=== PATIENT | female | born 1990 | race American Indian/Alaskan Native ===

== ENCOUNTER 2019-01-26 08:48 | Inpatient (IN) | payer MEDICAID ==
[2019-01-26] MEDS ORDERED: REGLAN IV NR (10:00)
[2019-01-26] MEDS ORDERED: PEPCID IV NR (10:00)
[2019-01-26] MEDS ORDERED: ANCEF/STERILE WATER 2 GM/20 ML 2 GM/20 ML SYRINGE IV NR (10:00)
[2019-01-26] MEDS ORDERED: LACTATED RINGERS 1,000 ML IV SCH (10:00)
[2019-01-26] MEDS ORDERED: PITOCin/NS 20 UNIT/1000ML DRIP 20 UNITS/1,000 ML BAG IV SCH ×2 (10:00→15:00)
[2019-01-26] MEDS ORDERED: BICITRA PO NR (10:00)
[2019-01-26 10:11] LABS: Basophils % (Auto) 0.3 % (0.0-1.8); Eosinophils % (Auto) 0.4 % (0.0-4.3); Hemoglobin 10.8 gm/dl (10.1-14.3); Lymphocytes # (Auto) 2.5 K/mm3 (1.2-5.4); Lymphocytes % (Auto) 24.7 % (13.4-35.0); Mean Corpuscular HGB Conc 33 % (30-34); Mean Corpuscular Volume 80 fl (79-97); Monocytes # (Auto) 0.5 K/mm3 (0.0-0.8); Monocytes % (Auto) 5.1 % (0.0-7.3); Platelet Count 366 K/mm3 (140-440); Red Blood Count 4.11 M/mm3 (3.65-5.03); Red Cell Distribution Width 19.6 % (13.2-15.2)
--- NOTE | 2019-01-26 10:21 | Anesthesia Day of Surgery ---
Anesthesia Day of Surgery - Day of Surgery Patient Examined: Yes Patient H&P Reviewed: Yes Patient is NPO: Yes Beta Blockers: No Cardiac Clearance: No Pulmonary Clearance: No Marvin's Test: N/A
--- NOTE | 2019-01-26 10:21 | Anesthesia Consultation ---
Anesthesia Consult and Med Hx Date of service: 01/26/19 - Airway Anesthetic Teeth Evaluation: Good ROM Head & Neck: Adequate Mental/Hyoid Distance: Adequate Mallampati Class: Class III Intubation Access Assessment: Probably Good - Pulmonary Exam CTA: Yes - Cardiac Exam Cardiac Exam: RRR - Pre-Operative Health Status ASA Pre-Surgery Classification: ASA3 Proposed Anesthetic Plan: Spinal - Pulmonary Hx Smoking: No Hx Asthma: No Hx Respiratory Symptoms: No SOB: No COPD: No Home Oxygen Therapy: No Hx Pneumonia: No Hx Sleep Apnea: No - Cardiovascular System Hx Hypertension: No Hx Coronary Artery Disease: No Hx Heart Attack/AMI: No Hx Angina: No Hx Percutaneous Transluminal Coronary Angioplasty (PTCA): No Hx Cardia Arrhythmia: No Hx Pacemaker: No Hx Internal Defibrillator: No Hx Valvular Heart Disease: No Hx Heart Murmur: No Hx Peripheral Vascular Disease: No - Central Nervous System Hx Neuromuscular Disorder: No Hx Seizures: No CVA: No Hx Back Pain: Yes Hx Psychiatric Problems: No - Gastrointestinal Hx Ulcer: No Hx Gastroesophageal Reflux Disease: Yes - Endocrine Hx Renal Disease: No Hx End Stage Renal Disease: No Hx Cirrhosis: No Hx Liver Disease: No Hx Insulin Dependent Diabetes: No Hx Non-Insulin Dependent Diabetes: No Hx Thyroid Disease: No Hx Hypothyroidism: No Hx Hyperthyroidism: No - Hematic Hx Anemia: No Hx Sickle Cell Disease: No - Other Systems Hx Alcohol Use: No Hx Substance Use: No Hx Cancer: No Hx Obesity: Yes (BMI 48.4)
--- NOTE | 2019-01-26 10:22 | Post Anesthesia Evaluation ---
- Post Anesthesia Evaluation Patient Participated: Yes Airway Patent: Yes Stable Respiratory Function: Yes Nausea/Vomiting: No Temp > 96.8F: Yes Pain Manageable: Yes Adequeate Hydration: Yes Anesthesia Complications: No Block Receding Appropriately: Yes Patient on Ventilator: No
[2019-01-26] MEDS ORDERED: NARCAN 0.4 MG/1 ML IV PRN ×2 (10:30→14:42)
[2019-01-26] MEDS ORDERED: SUBLIMAZE ONE ×2 (10:30→13:45)
[2019-01-26] MEDS ORDERED: ZOFRAN IV PRN ×2 (10:30→14:42)
[2019-01-26] MEDS ORDERED: PHENERGAN PO PRN (10:30)
[2019-01-26] MEDS ORDERED: PHENERGAN PR PRN ×2 (10:30→14:42)
[2019-01-26] MEDS ORDERED: SODIUM CHLORIDE FLUSH SYRINGE 10 ML IV PRN (11:00)
[2019-01-26] MEDS ORDERED: LACTATED RINGERS 1,000 ML ONE ×2 (11:48→14:18)
--- NOTE | 2019-01-26 11:52 | History and Physical Report ---
History of Present Illness Date of examination: 01/26/19 Date of admission: 01/26/19 08:48 Chief complaint: SIUP at 39 weeks at 39 weeks and 4 days gestation not in labor. Previous C/section x 2. Unwanted fertility. History of present illness: Patient is a 28 year old , LMP 04/24/18, EDC 01/29/19 at 39 weeks and 4 days gestation who was admitted for elective repeat C/section and tubal ligation. She denies any contraction, fluid leakage or bleeding. She reports good movement. tracing is CAT1. Past History Past Medical History: other (obesity, anemia.) Past Surgical History: section ( ) [employer] AND [employer]ER History: herpes Family/Genetic History: none Social history: no significant social history - Obstetrical History Expected Date of Delivery: 01/29/19 Actual Gestation: 39 Week(s) 4 Day(s) : 3 Para: 2 Induced : 2 Medications and Allergies Allergies Allergy/AdvReac Type Severity Reaction Status Date / Time No Known Allergies Allergy Verified 01/26/19 09:30 Home Medications Medication Instructions Recorded Confirmed Last Taken Type Ibuprofen [Motrin 800 MG tab] 800 mg PO Q6H PRN 09/24/13 09/24/13 09/23/13 History Sulfamethoxazole/Trimethoprim 1 each PO BID #20 tablet 09/24/13 Unknown Rx [Bactrim Ds] Active Meds: Active Medications Citric Acid/Sodium Citrate (Bicitra) 30 ml PO ONCE NR Stop: 01/26/19 18:00 Last Admin: 01/26/19 11:08 Dose: 30 ml Documented by: Famotidine (Pepcid) 20 mg IV ONCE NR Stop: 01/26/19 18:00 Last Admin: 01/26/19 11:08 Dose: 20 mg Documented by: Cefazolin Sodium (Ancef/Sterile Water 2 Gm/20 Ml) 2 gm in 20 mls @ 80 mls/hr IV PREOP NR; Protocol Stop: 01/26/19 19:00 Oxytocin/Sodium Chloride (Pitocin/Ns 20 Unit/1000ml Drip) 20 units in 1,000 mls @ 0 mls/hr IV TITR CHARLY Lactated Ringer's (Lactated Ringers) 1,000 mls @ 2,250 mls/hr IV PREOP CHARLY Stop: 01/27/19 10:27 Metoclopramide HCl (Reglan) 10 mg IV ONCE NR Stop: 01/26/19 18:00 Last Admin: 01/26/19 11:08 Dose: 10 mg Documented by: Naloxone HCl (Narcan 0.4 Mg/1 Ml) 0.2 mg IV Q2MIN PRN PRN Reason: Res Rate </= 8 or 02 SAT < 92% Ondansetron HCl (Zofran) 4 mg IV Q8H PRN PRN Reason: Nausea And Vomiting Promethazine HCl (Phenergan) 25 mg PO Q6H PRN PRN Reason: Nausea And Vomiting Promethazine HCl (Phenergan) 25 mg GA Q6H PRN PRN Reason: Nausea And Vomiting Sodium Chloride (Sodium Chloride Flush Syringe 10 Ml) 10 ml IV PRN PRN PRN Reason: flush - Vital Signs Vital signs: Vital Signs Temp Resp 98.1 F 18 01/26/19 09:18 01/26/19 09:18 Temp Pulse Resp BP Pulse Ox 98.1 F 99 H 18 135/75 01/26/19 09:18 01/26/19 09:54 01/26/19 09:18 01/26/19 09:54 - Physical Exam Cardiovascular: Normal S1, Normal S2 Lungs: Positive: Clear to auscultation Vulva: both: normal Adnexa: both: normal Deep Tendon Reflex Grade: Normal +2 - Obstetrical FHR: category 1 Uterine Contraction Monitor Mode: External Cervical Dilatation: 0 Cervical Effacement Percentage: 0 station: -3 Uterine Contraction Pattern: Absent Results Result Diagrams: 01/26/19 09:35 Abnormal lab results 01/26/19 Range/Units 09:35 MCH 26 L (28-32) pg RDW 19.6 H (13.2-15.2) % All other labs normal. Assessment and Plan - Patient Problems (1) 39 weeks gestation of Current Visit: Yes Status: Acute (2) Previous section Current Visit: Yes Status: Acute Plan to address problem: Admit to labor floor. Routine preop labs. IV hydration. Keep NPO. monitoring. Patient was counselled for repeat C/section and BTL. Risks, benefits, and alternatives of the procedure were discussed in detail with the patient which included but not limited to the risk of infection, hemorrhage requiring blood transfusion, injury to the bowel or bladder and blood vessels, failure of the tubal ligation to prevent which can result in unwanted pregnancies in the future. The patient expressed understanding, her questions were answered, and she gave informed consent. Anesthesia notified. (3) Unwanted fertility Current Visit: Yes Status: Acute (4) Anemia Current Visit: Yes Status: Acute (5) Obesity Current Visit: Yes Status: Acute
[2019-01-26] MEDS ORDERED: TORADOL ONE (12:19)
[2019-01-26] MEDS ORDERED: WATER FOR IRRIG STERILE IR ONE (12:59)
[2019-01-26] MEDS ORDERED: NACL 0.9% IR ONE (12:59)
[2019-01-26] MEDS ORDERED: XYLOCAINE MPF 2% ONE (13:48)
[2019-01-26] MEDS ORDERED: MORPHINE IV PRN (14:42)
[2019-01-26] MEDS ORDERED: TUCKS PAD TP PRN (14:42)
[2019-01-26] MEDS ORDERED: LANSINOH TP PRN (14:42)
[2019-01-26] MEDS ORDERED: TYLENOL PO PRN (14:42)
[2019-01-26] MEDS ORDERED: SENOKOT PO PRN (14:42)
[2019-01-26] MEDS ORDERED: MILK OF MAGNESIA PO PRN (14:42)
[2019-01-26] MEDS ORDERED: TORADOL IV PRN (14:42)
--- NOTE | 2019-01-26 14:45 | Operative Report ---
Operative Report Operative Report: Preoperative diagnosis:
[2019-01-26] MEDS ORDERED: SODIUM CHLORIDE FLUSH SYRINGE 10 ML IV SCH (15:00)
--- NOTE | 2019-01-26 15:28 | Operative Report ---
Operative Report Operative Report: Preoperative diagnosis 1. SIUP at 39 weeks and 4 days gestation not in labor. 2. Previous C/section x 2. 3. Unwanted fertility. 4. Morbid Obesity. Postoperative diagnosis: 1. SIUP at 39 weeks and 4 days gestation not in labor. 2. Previous C/section x 2. 3. Unwanted fertility. 4. Morbid Obesity. 5. Dense adhesion of the fascia to the anterior uterine segment. Procedure: 1. Repeat low-transverse section. 2. Bilateral tubal ligation via Pemoroy method. 3. Lysis of dense adhesions of the fascia from the anterior uterine segment. Surgeon: Dr. Wallace Activated Sludge Attendant: none Anesthesia: epidural. IVF: RL 1.9 liters EBL: 800 cc Urine: 300 cc clear Complications: none. Intraoperative findings: 1. Dense adhesions of the fascia to the anterior uterine segment. 2. A female found in an SANAZ position, delivered at 1 PM, Apgars 5 at 1 minute and 8 at 5 minutes, weight 8 lbs. 9 oz. 3. Normal fallopian tubes and ovaries bilaterally. Procedure details: Risks, benefits, and alternatives of the procedure were discussed in detail with the patient which included but not limited to the risk of infection, hemorrhage requiring blood transfusion, injury to the bowel or bladder and blood vessels, the risks of the tubal ligation to fail to prevent which can result in unwanted pregnancies in the future. The patient expressed understanding, her questions were answered, and she gave informed consent. The patient was taken to the operating room with an IV fluid infusing Ringers lactate. In the operating room, she was placed in a sitting position and given spinal anesthesia. She was then placed in a dorsal supine position with a leftward tilt. Navarro catheter in Venodyne boots were placed. The abdomen was washed and she was prepared and draped in usual sterile fashion. After confirming adequate anesthesia, the Pfannenstiel skin incision was made in the lower abdomen about 2 cm above the pubic symphysis using the scalpel. This incision was carried down to the underlying fascia using the Bovie. The fascia was opened bilaterally in a curvilinear fashion using the Bovie. 2 straight Kocker clamps were used to grasp the upper edge of the fascia from which the underlying rectus abdominis muscles was dissected off using the Bovie. The fascia was also found to be densely adherent to the uterus. Most of the muscle that was attached to the fascia was the uterine muscle. A similar procedure was done with the lower edge of the fascia to dissect the underlying uterine muscle. A quick survey of the anatomy revealed a gravid uterus, normal fallopian tubes and ovaries bilaterally. A bladder flap was created. Rex'O retractor was placed in the incision for proper visualization. A low transverse incision was made in the lower uterine segment. There was copious amount of clear amniotic fluids. The was found in an SANAZ position, the head was delivered atraumatically followed by the delivery of the shoulders and the rest of the body at 1 PM. The cord was clamped 2 and cut and the was handed off to the waiting web interface developer. The infant was a female, Apgars were 5 at 1 minute and 8 at 5 minutes, weight was 8 pounds and 9 ounces. Cord blood was collected. The placenta was delivered manually and it was complete with a three-vessel cord. The uterine cavity was cleaned of clots and debris using dry lap sponges. The uterus was repaired in a running locked fashion using 0 Vicryl sutures. A second layer of imbrication was placed. The gutters were cleaned of clots and debris using dry lap sponges. After confirming adequate hemostasis, the instruments were removed from the abdominal cavity. The rectus muscle was reapproximated in an interrupted fashion using 0 Vicryl sutures. The fascia was closed in a running fashion using 0 Vicryl sutures. The subcutaneous adipose tissue was closed with 2.0 chromic sutures. The skin was closed in a roldan bcutaneous fashion with 4 vicryl on a Sudhakar needle. Sterile dressing was placed. The counts of laps, needles, sponges, and instruments were correct 2. The patient tolerated the procedure well, she was taken to the recovery room in a stable condition.
[2019-01-26] MEDS ORDERED: ANUCORT-HC PR PRN (16:00)
[2019-01-26] MEDS: TORADOL IV PRN (18:43)
[2019-01-26] MEDS: MYLICON PO PRN (22:28)
[2019-01-26] MEDS: MORPHINE IV PRN (22:29)
[2019-01-27] MEDS: TORADOL IV PRN (02:37)
[2019-01-27 03:06] LABS: Hematocrit 25.8 % (30.3-42.9); Hemoglobin 8.2 gm/dl (10.1-14.3)
[2019-01-27] MEDS: MORPHINE IV PRN (05:35)
[2019-01-27] MEDS ORDERED: BOOSTRIX IM ONE (06:00)
[2019-01-27] MEDS: FEOSOL PO SCH (10:36)
[2019-01-27] MEDS: PRENATAL VITAMIN PO SCH (10:36)
--- NOTE | 2019-01-27 11:24 | Progress Note ---
Assessment and Plan A: POD#1 s/p Repeat c/s with BTL Morbid obesity Asymptomatic Anemia Stable P: Routine PO/PP orders Encouraged ambulation in room Anticipate discharge home in 24-48 hours Subjective - Subjective Date of service: 01/27/19 Principal diagnosis: POD#1 s/p Repeat c/s with BTL Patient reports: appetite normal, voiding normally, pain well controlled, flatus, ambulating normally, no bowel movement [place]: doing well Objective - Vital Signs Latest vital signs: Vital Signs Temp Pulse Resp BP BP Pulse Ox 01/27/19 08:10 98.2 F 114 H 20 121/70 01/27/19 05:35 18 01/27/19 04:18 98.2 F 124 H 20 133/76 97 01/27/19 02:37 18 01/27/19 00:16 98.2 F 116 H 20 146/91 96 01/26/19 22:29 19 01/26/19 20:21 98.3 F 111 H 20 147/91 98 01/26/19 17:00 97.5 F L 86 18 126/80 97 01/26/19 16:00 97.8 F 76 21 102/63 95 01/26/19 15:45 80 18 101/51 95 01/26/19 15:30 88 21 112/57 95 01/26/19 15:15 87 22 98/53 95 01/26/19 15:05 73 21 106/50 95 01/26/19 15:00 82 18 108/60 95 01/26/19 14:54 97.7 F 80 19 101/61 95 Intake and Output 01/26/19 01/27/19 01/27/19 23:59 07:59 15:59 Intake Total 240 240 360 Output Total 400 1200 600 Balance -160 -960 -240 Intake: Oral 240 240 360 Output: Urine 400 1200 600 Indwelling Catheter 1200 Uretheral (Navarro) 200 Void 600 Other: Total, Intake Amount 240 240 360 Total, Output Amount 400 600 # Voids Void 1 - Exam Breasts: Present: normal Cardiovascular: Present: Regular rate, Normal S1, Normal S2, No murmurs Lungs: Present: Clear to auscultation, Normal air movement Abdomen: Present: normal appearance, soft, tenderness (as expected post-op), normal bowel sounds, other (morbid obesity). Absent: distention Vulva: both: normal Uterus: Present: firm, fundal height at umbilicus Extremities: Present: normal, edema (+1) Deep Tendon Reflex Grade: Normal +2 Incision: Present: normal, dry, intact, dressed (Prewsure dressing CDI) - Labs Labs: Abnormal lab results 01/27/19 Range/Units 02:52 Hgb 8.2 L (10.1-14.3) gm/dl Hct 25.8 L D (30.3-42.9) %
[2019-01-27] MEDS: IBUPROFEN PO PRN (13:35)
[2019-01-27] MEDS: PERCOCET 5/325 PO PRN (13:36)
[2019-01-27] MEDS: MYLICON PO PRN (13:37)
[2019-01-27] MEDS ORDERED: INFED IM ONE (18:07)
[2019-01-28] MEDS: PERCOCET 5/325 PO PRN ×3 (03:31→17:51)
[2019-01-28] MEDS: IBUPROFEN PO PRN ×3 (03:32→17:52)
--- NOTE | 2019-01-28 09:13 | Progress Note ---
Assessment and Plan - Patient Problems (1) S/P repeat low transverse Current Visit: Yes Status: Acute Plan to address problem: POD 2 - stable Continue routine postop orders Discussed relief measures for edema Ambulation encouraged, as tolerated Abdominal binder ordered Discharge to home later today Follow up at [facility] as needed or in 1 week for incision check (2) S/P tubal ligation Current Visit: Yes Status: Acute (3) Anemia due to blood loss, acute Current Visit: Yes Status: Acute Plan to address problem: Asymptomatic Continue iron therapy Subjective - Subjective Date of service: 01/28/19 Principal diagnosis: POD#1; s/p Repeat LTCS with BTL Interval history: see H&P, Operative Report and PP/COMPLEX DIRECTOR Progress Note Patient reports: appetite normal, voiding normally, pain well controlled, flatus, ambulating normally, no dizzy ambulation, no bowel movement : doing well, bottle feeding Objective - Vital Signs Latest vital signs: Vital Signs Temp Pulse Resp BP BP Pulse Ox 01/27/19 23:58 99.1 F 110 H 20 141/80 96 01/27/19 16:43 98.4 F 122 H 18 143/85 98 01/27/19 13:36 20 01/27/19 13:35 20 01/27/19 13:15 98.2 F 122 H 20 128/76 Intake and Output 01/27/19 01/28/19 01/28/19 23:59 07:59 15:59 Intake Total 240 Balance 240 Intake: Oral 240 Other: Total, Intake Amount 240 # Voids Void 1 1 - Exam Cardiovascular: Present: Regular rate Abdomen: Present: normal appearance, soft Vulva: both: normal Uterus: Present: normal, firm, fundal height below umbilicus Extremities: Present: edema (1+, BLE) Incision: Present: normal, dry, intact, other (steri strips in place) Comments: small lochia
--- NOTE | 2019-01-28 09:20 | Discharge Summary ---
Providers - Providers Date of Admission: 01/26/19 08:48 Date of discharge: 01/28/19 Attending physician: LISBET HILL MD Primary care physician: LISBET HILL MD Hospitalization Reason for admission: IUP at term Delivery: Procedure: bilateral tubal ligation, repeat low transverse Episiotomy: none Laceration: none Incision: normal, dry, intact, other (steri strips in place) Other procedures: none complications: none Discharge diagnosis: IUP at term delivered [place] baby: female Hospital course: Uncomplicated Condition at discharge: Stable Disposition: DC-01 TO HOME OR SELFCARE - Discharge Diagnoses (1) S/P repeat low transverse Status: Acute (2) S/P tubal ligation Status: Acute (3) Anemia due to blood loss, acute Status: Acute Comment: Asymptomatic Continue iron therapy (patient reports she has refills from prior prescription) Plan - Discharge Medications Prescriptions: Ibuprofen [Motrin] 800 mg PO Q8HR PRN #30 tablet PRN Reason: Pain, Moderate (4-6) oxyCODONE /ACETAMINOPHEN [Percocet 5/325] 1 tab PO Q4HR #14 tab - Provider Discharge Summary Activity: routine, no sex for 6 weeks, no heavy lifting 4 weeks, no strenuous exercise Diet: routine Instructions: routine Additional instructions: [] Smoking cessation referral if applicable(refer to patient education folder for contact #) [] Refer to [facility] Booklet Call your doctor immediately for: * Fever > 100.5 * Heavy vaginal bleeding ( >1 pad per hour) * Severe persistent headache * Shortness of breath * Reddened, hot, painful area to leg or breast * Drainage or odor from incision. * Keep incision clean and dry at all times and follow doctor's instructions regarding bathing/showering - Follow up plan Follow up: LISBET HILL MD [Primary Care Provider] - 7 Days (Follow up at [facility] as needed or in 1 week for incision check)
[2019-01-28] MEDS: FEOSOL PO SCH (10:48)
[2019-01-28] MEDS: PRENATAL VITAMIN PO SCH (10:49)
[2019-01-28 17:25] VITALS: BP 134/82
== END 2019-01-28 19:30 | disposition home or self-care (01) | DRG 765 ==
LOC: APU 08:48 → OB 17:07
PROVIDERS: ADMIT Obstetrics & Gynecology; ATTEND Obstetrics & Gynecology
PROC: 10D00Z1 Extraction of Products of Conception, Low, Open Approach (ICD-10-PCS; principal; 2019-01-26)
PROC: 0UN90ZZ Release Uterus, Open Approach (ICD-10-PCS; 2019-01-26)
PROC: 0UB70ZZ Excision of Bilateral Fallopian Tubes, Open Approach (ICD-10-PCS; 2019-01-26)
DX: O34.211 Maternal care for low transverse scar from previous cesarean delivery (principal); D62 Acute posthemorrhagic anemia; Z68.42 Body mass index [BMI] 45.0-49.9, adult; E66.01 Morbid (severe) obesity due to excess calories; O99.62 Diseases of the digestive system complicating childbirth; K21.9 Gastro-esophageal reflux disease without esophagitis; O99.214 Obesity complicating childbirth; O99.02 Anemia complicating childbirth; O99.89 Other specified diseases and conditions complicating pregnancy, childbirth and the puerperium; N73.6 Female pelvic peritoneal adhesions (postinfective); Z3A.39 39 weeks gestation of pregnancy; Z37.0 Single live birth; Z71.3 Dietary counseling and surveillance; Z79.899 Other long term (current) drug therapy
CPT/HCPCS: 36415; 59025; 85014; 85018; 85025; 86850; 86900; 86901; 88302; 90471; 90715; 96360; 96374; G0378; J0690; J1750; J1885; J2270; J2590; J2765; J3010; J7120